=== PATIENT | male | born 1955 | race Caucasian/White ===

== ENCOUNTER → 2024-01-27 08:30 | Outpatient (REF) | payer BC, SELFPAY | LOC: HWRAD 08:30 | PROVIDERS: ATTENDING PHYSICIAN Surgery; FAMILY PHYSICIAN Family Medicine | DX: K40.91 Unilateral inguinal hernia, without obstruction or gangrene, recurrent (principal) | CPT/HCPCS: 74177; Q9967 ==

== ENCOUNTER 2024-02-08 06:41 | Day surgery (SDC) | payer OTHER, SELFPAY ==
[2024-02-08 09:11] VITALS: BMI 25.0
[2024-02-08 09:12] VITALS: BP 129/85; BMI 25.0
[2024-02-08] MEDS: TYLENOL 1000 MG PO (09:21)
[2024-02-08] MEDS: NORMOSOL-R 1000 IV (09:34)
[2024-02-08 13:22] VITALS: BP 132/77
[2024-02-08 13:30] VITALS: BP 123/67
[2024-02-08 13:45] VITALS: BP 137/81
[2024-02-08 14:00] VITALS: BP 136/88
[2024-02-08] MEDS: ZOFRAN 4 MG IV (14:03)
[2024-02-08 14:15] VITALS: BP 140/84
== END 2024-02-08 14:45 | disposition home or self-care (01) ==
LOC: SDS 06:41
PROVIDERS: ATTENDING PHYSICIAN Surgery
DX: K40.91 Unilateral inguinal hernia, without obstruction or gangrene, recurrent (principal)
CPT/HCPCS: 49520; C1781

== ENCOUNTER → 2025-05-21 09:17 | Outpatient (REF) | payer OTHER, SELFPAY | LOC: RCS 09:17 | PROVIDERS: ATTENDING PHYSICIAN Internal Medicine Cardiovascular Disease; FAMILY PHYSICIAN Family Medicine | DX: R00.2 Palpitations (principal) | CPT/HCPCS: 93225; 93226 ==